=== PATIENT | male | born 1970 | race Caucasian/White ===

== ENCOUNTER 2019-07-28 18:48 | Emergency (ER) | payer BC, SELFPAY ==
[2019-07-28 18:53] VITALS: BP 137/94; PULSE 100; RESP 16; TEMP 36.9; O2SAT 97
--- NOTE | 2019-07-28 19:37 | ED.LOWEXIN ---
HPI - Extremity Injury (Lower) General Chief Complaint: Extremity Injury, Lower <Nia Graves PA-C - Last Filed: 07/28/19 20:01> Stated Complaint: right calf pain <KAREN Parra Last Filed: 07/28/19 20:01> Time Seen by Provider: 07/28/19 19:17 <KAREN Parra Last Filed: 07/28/19 20:01> Source: patient <KAREN Parra Last Filed: 07/28/19 20:01> Mode of arrival: ambulatory <KAREN Parra Last Filed: 07/28/19 20:01> Limitations: no limitations <KAREN Parra Last Filed: 07/28/19 20:01> History of Present Illness HPI Narrative: This is a 49-year-old male that presents the emergency department for right calf injury 1 hour ago. Reports he was walking on the trails [place] a [place]. Reports he suddenly felt a pop in his right calf. Reports since he has had pain in the area. Denies edema, bruising, or erythema. <KAREN Parra Last Filed: 07/28/19 20:01> Related Data Home Medications: Home Medications Medication Instructions Recorded Confirmed aspirin [Aspirin Low Dose] 07/28/19 cholecalciferol (vitamin D3) 25 mcg PO DAILY 07/28/19 07/28/19 [Vitamin D3] creatine monohydrate mg PO 07/28/19 07/28/19 nutritional supplements 07/28/19 omega [id number]-fish oil [Fish Oil] cap PO 07/28/19 resveratrol mg PO 07/28/19 <KAREN Parra Last Filed: 07/28/19 20:01> Allergies/Adverse Reactions: Allergies Allergy/AdvReac Type Severity Reaction Status Date / Time No Known Allergies Allergy Verified 07/28/19 18:55 <KAREN Parra Last Filed: 07/28/19 20:01> Review of Systems Review of Systems: Narrative: CONSTITUTIONAL: Denies fever SKIN: Denies rash MUSCULOSKELETAL: Reports myalgia. Denies joint pain <Nia Graves PA-C - Last Filed: 07/28/19 20:01> All systems reviewed & are unremarkable except as noted in HPI and below <Nia Graves PA-C - Last Filed: 07/28/19 20:01> [facility] Past Medical History Medical History: Medical History (Updated 07/29/19 @ 00:00 by Olvin Sheridanailyn) No active medical problems <Nia Graves PA-C - Last Filed: 07/28/19 20:01> Social History Social History: Social History (Updated 07/28/19 @ 19:39 by Nia Graves PA-C) Smoking status: Current some day smoker <Nia Graves PA-C - Last Filed: 07/28/19 20:01> Exam Narrative: Exam Narrative: GENERAL: Well-appearing, well-nourished, and in no acute distress. HEAD: Normocephalic, atraumatic. EYES: EOMI. EXTREMITIES: Normal range of motion. No edema or obvious deformity. Tender to palpation of the right gastrocnemius muscle medially. Achilles tendon is intact. Tenorio test is normal SKIN: Warm, dry, no rash. NEURO: No focal deficits. Alert and oriented x3. PSYCH: Normal mood and affect <Nia Graves PA-C - Last Filed: 07/28/19 20:01> Course Vital Signs Vital signs: Vital Signs Temperature 98.5 F 07/28/19 18:53 Pulse Rate 100 07/28/19 18:53 Respiratory Rate 16 07/28/19 18:53 Blood Pressure 137/94 H 07/28/19 18:53 Pulse Oximetry 97 07/28/19 18:53 Temperature 98.5 F 07/28/19 18:53 Pulse Rate 100 07/28/19 18:53 Respiratory Rate 16 07/28/19 18:53 Blood Pressure 137/94 H 07/28/19 18:53 Pulse Oximetry 97 07/28/19 18:53 <Nia Graves PA-C - Last Filed: 07/28/19 20:01> Vital Signs Temperature 98.5 F 07/28/19 18:53 Pulse Rate 100 07/28/19 18:53 Respiratory Rate 16 07/28/19 18:53 Blood Pressure 137/94 H 07/28/19 18:53 Pulse Oximetry 97 07/28/19 18:53 Temperature 98.5 F 07/28/19 18:53 Pulse Rate 100 07/28/19 18:53 Respiratory Rate 16 07/28/19 18:53 Blood Pressure 137/94 H 07/28/19 18:53 Pulse Oximetry 97 07/28/19 18:53 <Tiffany Tyler MD - Last Filed: 07/29/19 07:30> MDM - Extremity Injury (Lower) MDM Narrative Medical decision making narrative: Patient presents emerg
== END 2019-07-28 20:05 | disposition home or self-care (01) ==
PROVIDERS: Emergency Provider General Practice
DX: S86.911A Strain of unspecified muscle(s) and tendon(s) at lower leg level, right leg, initial encounter (principal); X50.9XXA Other and unspecified overexertion or strenuous movements or postures, initial encounter; F17.200 Nicotine dependence, unspecified, uncomplicated
CPT/HCPCS: 99282

== ENCOUNTER → 2019-10-15 10:48 | Outpatient (CLI) | payer BC, SELFPAY ==
--- NOTE | ~2019-10-15 | CT_ITS ---
EXAMINATION: CT pelvis wo con DATE: 10/15/2019 11:04 INDICATION: Lower abdominal pain TECHNIQUE: Computed tomography (CT) of the pelvis was performed without intravenous contrast. The dos e-length product (DLP) was 668.85 mGy-cm. Automated exposure control and iterative reconstruction nettie hnique were employed. COMPARISON: None FINDINGS: The appendix is normal. There are no dilated loops of bowel. No free intraperitoneal gas is identified. There are no pathologically enlarged pelvic lymph nodes. Pelvic phleboliths are noted. T here is moderate lower lumbar spondylosis. A tiny fat-containing umbilical hernia is noted. IMPRESSION: 1. No CT correlate for the patient's symptoms. Reviewed, dictated and finalized at location B.
== END ==
PROVIDERS: Visit Provider Surgery
DX: R10.31 Right lower quadrant pain (principal); R10.32 Left lower quadrant pain
CPT/HCPCS: 72192

== ENCOUNTER → 2021-07-11 01:52 | Outpatient (CLI) | payer OTHER, SELFPAY ==
[2021-07-11 12:49] LABS: SARS-CoV-2 RNA PCR Negative
== END ==
PROVIDERS: PCP Family Medicine; Visit Provider Internal Medicine Gastroenterology
DX: Z01.812 Encounter for preprocedural laboratory examination (principal); Z20.822 Contact with and (suspected) exposure to COVID-19
CPT/HCPCS: C9803; U0003; U0005

== ENCOUNTER 2021-07-14 00:32 | Day surgery (SDC) | payer OTHER, SELFPAY ==
[2021-07-04 11:09] VITALS: BMI 35.4
[2021-07-14 08:09] VITALS: BP 149/93; PULSE 82; RESP 18; TEMP 36.2; O2SAT 99
--- NOTE | 2021-07-14 08:15 | WPDANESEPPF ---
Anes - Initial Pre Proc Eval Procedure: Operation Date: 07/14/21 09:30 Proposed Procedures p Screening Colonoscopy - Carl Bowen MD Date/Time: 07/14/21 08:15 Surgeon: Carl Bowen MD Pre Op Diagnosis: neoplasm screening Patient Data Age: 51 Gender: M Height: 1.75 m Weight: 109.8 kg Last Vital Signs Temp 36.2 C L 07/14/21 08:09 Pulse 82 07/14/21 08:09 Resp 18 07/14/21 08:09 BP 149/93 H 07/14/21 08:09 Pulse Ox 99 07/14/21 08:09 Allergies Allergy/AdvReac Type Severity Reaction Status Date / Time shellfish derived Allergy Severe Anaphylaxis Verified 07/14/21 08:09 wheat soren Allergy Severe Anaphylaxis Uncoded 07/04/21 11:10 Home Medications Medication Instructions Recorded Confirmed Type tadalafil 5 mg tablet 5 mg PO DAILY tablet 05/04/21 07/04/21 History Calcium D-Glucarate 200 mg PO BID 07/04/21 07/04/21 History [place] Bergamot 1,000 mg PO DAILY 07/04/21 07/04/21 History Curcumin 400 mg PO BID 07/04/21 07/04/21 History Liothyronine-Levothyroxine 1 cap PO DAILY 07/04/21 07/04/21 History Milk Thistle Extract 250 mg PO BID 07/04/21 07/04/21 History Quercetin 1,000 mg PO DAILY 07/04/21 07/04/21 History acetylcysteine [NAC] 600 mg PO BID 07/04/21 07/04/21 History ascorbic acid (vitamin C) 2 g PO BID 07/04/21 07/04/21 History aspirin [Aspirin Low-Strength] 81 mg PO BID 07/04/21 07/04/21 History cholecalciferol (vitamin D3) 125 mcg PO BID 07/04/21 07/04/21 History [Vitamin D3] losartan 50 mg PO DAILY 07/04/21 07/04/21 History pyridoxine (vitamin B6) [Vitamin 50 mg PO DAILY 07/04/21 07/04/21 History B-6] saw palmetto 1,100 mg PO BID 07/04/21 07/04/21 History testosterone cypionate 20 mg IM 3XW 07/04/21 07/04/21 History vitamin K2 100 mcg PO DAILY 07/04/21 07/04/21 History Patient hx anesthesia problems: none Family hx anesthesia problems: none Results Review: All pre-operative results and documents have been reviewed as part of the pre-operative evaluation. [facility] Past Medical History Medical History (Updated 07/14/21 @ 08:17 by Prince Cardoso MD) Coughing De Quervain's tenosynovitis, right Displaced fracture of right radial styloid process, sequela History of gastroesophageal reflux (GERD) HTN (hypertension) No active medical problems Obesity Wears glasses Wheezing Surgical History Surgical History H/O eye surgery History of nasal surgery History of throat surgery History of uvulopalatopharyngoplasty Hx of stem cell transplant Family History Family History (Updated 05/04/21 @ 13:26 by Sue Coreas) Father Asthma Mother Heart disease Grandparent Heart disease Other Heart disease Other Arthritis Hypertension Social History Social History (Updated 05/04/21 @ 13:26 by Sue Coreas) Smoking status: Never smoker Tobacco type: e-cigarettes/vaping Smokeless tobacco user: other Additional smoking assessment comments: OCCASSIONALLY VAPES, CHEWS NICOTINE GUM Alcohol intake: current Substance use: never Substance use type: does not use Living arrangements: with family 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 Informed Consent: The patient's anesthetic plan and its attendant risks and benefits were discussed with the patient
[2021-07-14] MEDS: LACTATED RINGERS 1,000 ML 150 ML IV CONT (08:20)
--- NOTE | 2021-07-14 08:43 | PM.HPGS ---
History of Present Illness History of Present Illness Consent: Risks, benefits, and alternatives have been discussed and questions answered. Patient agrees to proceed with procedure. Chief complaint: neoplasm screening Narrative: Rian Driscoll is a 51 year old male here for first screening colonoscopy Review of Systems Constitutional: Constitutional: Denies headache(s) and Denies weakness Eyes: Eyes: Denies blurry vision ENT: Reports Normal hearing present, Denies headache(s) and Denies neck pain Cardiovascular: Cardiovascular: Denies chest pain and Denies dyspnea Respiratory: Respiratory: Denies dyspnea Gastrointestinal: Gastrointestinal: Reports no additional gastrointestinal complaints Genitourinary: Genitourinary: Denies dysuria Musculoskeletal: Musculoskeletal: Denies neck pain Integumentary/Breasts: Skin/Breast: Denies dry skin Neurologic: Reports Normal hearing present, Denies headache(s) and Denies weakness Psychiatric: Psychiatric: Denies anxiety Endocrine: Endocrine: Denies change in body appearance Hematologic/Lymphatic: Hematologic/Lymphatic: Denies easy bleeding Allergic/Immunologic: Allergic/Immunologic: Denies urticaria PMF Past Medical History Medical History (Updated 07/14/21 @ 08:44 by Carl Bowen MD) Colon cancer screening Coughing De Quervain's tenosynovitis, right Displaced fracture of right radial styloid process, sequela History of gastroesophageal reflux (GERD) HTN (hypertension) No active medical problems Obesity Wears glasses Wheezing Surgical History Surgical History H/O eye surgery History of nasal surgery History of throat surgery History of uvulopalatopharyngoplasty Hx of stem cell transplant Family History Family History (Updated 05/04/21 @ 13:26 by Sue Coreas) Father Asthma Mother Heart disease Grandparent Heart disease Other Heart disease Other Arthritis Hypertension Social History Social History (Updated 05/04/21 @ 13:26 by Sue Coreas) Smoking status: Never smoker Tobacco type: e-cigarettes/vaping Smokeless tobacco user: other Additional smoking assessment comments: OCCASSIONALLY VAPES, CHEWS NICOTINE GUM Alcohol intake: current Substance use: never Substance use type: does not use Living arrangements: with family 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 [employer] Gender identity (if verbalized by the patient): Male Spiritual care concerns: No Meds Home Medications and Allergies Home Medications Medication Instructions Recorded Confirmed Type tadalafil 5 mg tablet 5 mg PO DAILY tablet 05/04/21 07/04/21 History Calcium D-Glucarate 200 mg PO BID 07/04/21 07/04/21 History [place] Bergamot 1,000 mg PO DAILY 07/04/21 07/04/21 History Curcumin 400 mg PO BID 07/04/21 07/04/21 History Liothyronine-Levothyroxine 1 cap PO DAILY 07/04/21 07/04/21 History Milk Thistle Extract 250 mg PO BID 07/04/21 07/04/21 History Quercetin 1,000 mg PO DAILY 07/04/21 07/04/21 History acetylcysteine [NAC] 600 mg PO BID 07/04/21 07/04/21 History ascorbic acid (vitamin C) 2 g PO BID 07/04/21 07/04/21 History aspirin [Aspirin Low-Strength] 81 mg PO BID 07/04/21 07/04/21 History cholecalciferol (vitamin D3) 125 mcg PO BID 07/04/21 07/04/21 History [Vitamin D3] losartan 50 mg PO DAILY 07/04/21 07/04/21 History pyridoxine (vitamin B6) [Vitamin 50 mg PO DAILY 07/04/21 07/04/21 History B-6] saw palmetto 1,100 mg PO BID 07/04/21 07/04/21 History testosterone cypionate 20 mg IM 3XW 07/04/21 07/04/21 History vitamin K2 100 mcg PO DAILY 07/04/21 07/04/21 History Allergies Allergy/AdvReac Type Severity Reaction Status Date / Time shellfish derived Allergy Severe Anaphylaxis Verified 07/14/21 08:09 wheat soren Allergy Severe Anaphylaxis Uncoded 07/04/21 11:10 Vital Signs Vital Signs - 24 hr 07/14/21 0
[2021-07-14 09:07] VITALS: BP 108/67; PULSE 77; RESP 20; O2SAT 94
[2021-07-14 09:17] VITALS: BP 110/64; PULSE 76; RESP 20; O2SAT 94
[2021-07-14 09:27] VITALS: BP 126/87; PULSE 73; RESP 22; O2SAT 100
== END 2021-07-14 09:35 | disposition home or self-care (01) ==
PROVIDERS: PCP Family Medicine; Visit Provider Internal Medicine Gastroenterology
PROC: 0DJD8ZZ Inspection of Lower Intestinal Tract, Via Natural or Artificial Opening Endoscopic (ICD-10-PCS; CPT 45378; principal; 2021-07-14 09:30)
DX: Z12.11 Encounter for screening for malignant neoplasm of colon (principal); D12.3 Benign neoplasm of transverse colon; K63.5 Polyp of colon; K64.8 Other hemorrhoids; I10 Essential (primary) hypertension; K21.9 Gastro-esophageal reflux disease without esophagitis; E66.9 Obesity, unspecified; Z68.35 Body mass index [BMI] 35.0-35.9, adult; F17.290 Nicotine dependence, other tobacco product, uncomplicated
CPT/HCPCS: 45385; 88305; C9803; J2704; J7120; U0003; U0005

== ENCOUNTER → 2023-01-31 14:15 | Outpatient (CLI) | payer BC, SELFPAY ==
--- NOTE | ~2023-01-31 | MR_ITS ---
MRI of the right wrist Technique: Coronal T1 weighted and proton density fat sat images, and axial and sagittal proton-densi ty and proton-density fat-sat images were acquired. Clinical History: Pain Findings: Scapholunate ligament is intact, and there is no widening of the scapholunate interval. Viri otriquetral ligament is intact. TFCC appears intact, especially the central articular disc. Bone marrow signals are unremarkable. No fracture or bone marrow edema evident. Joint spaces are pres erved. No joint effusion evident. Flexor tendons and carpal tunnel are unremarkable. There is probable mild tendinosis of the first and sixth extensor compartment tendons (abductor pollicis longus, extensor pollicis brevis, and extensor carpi ulnaris). Remaining extensor tendons are unremarkable. No fluid distention of the tendon sheat h is seen. No soft tissue mass or fluid collection evident otherwise. IMPRESSION: Probable mild tendinosis of the first and sixth extensor compartment tendons, as detailed above. Reviewed, dictated and finalized at location M. [employer] IMPRESSION: Probable mild tendinosis of the first and sixth extensor compartment tendons, a s detailed above.
== END ==
PROVIDERS: PCP Orthopaedic Surgery; Visit Provider Orthopaedic Surgery
DX: M25.531 Pain in right wrist (principal)
CPT/HCPCS: 73221

== ENCOUNTER 2023-06-03 10:43 | Outpatient (CLI) | payer OTHER, SELFPAY ==
--- NOTE | ~2023-06-03 | CT_ITS ---
EXAMINATION: CT inject muscle 1-2 w imaging DATE: 06/03/2023 11:55 INDICATION: TECHNIQUE: A time-out was performed to verify the patient's name, date of , and procedure to be performed . The procedure including the risks and benefits was discussed with the patient. Risks discussed incl uded bleeding and infection. The patient understood the risks and benefits and agreed to proceed. The skin overlying the left buttock was prepped and draped in usual sterile fashion. Anesthetic was adm inistered with 1% lidocaine subcutaneously. A 22-gauge spinal needle was inserted into the left pirif ormis muscle belly utilizing CT guidance. A 1:1 mixture of 80 mg Depo-Medrol: 1% lidocaine for total dosage of 80 mg Depo-Medrol was injected. The needle was removed and a Band-Aid applied. There were n o immediate complications. The dose-length product was 124.50 mGy-cm. FINDINGS: CT images demonstrate the needle tip within the left piriformis muscle belly. There is a re gion of decreased density and several foci of gas tracking within the left piriformis muscle belly fo llowing the injection. IMPRESSION: 1. Successful left piriformis injection of 1 mL 1% lidocaine and 80 mg Depo-Medrol. Reviewed, dictated and finalized at location A. IMPRESSION: 1. Successful left piriformis injection of 1 mL 1% lidocaine and 80 mg Depo-Med rol.
== END 2023-06-03 10:44 | disposition home or self-care (01) ==
PROVIDERS: Visit Provider Nurse Practitioner Family
DX: M79.18 Myalgia, other site (principal)
CPT/HCPCS: 20552; 77012; J1040